=== PATIENT | male | born 1965 | race Caucasian/White ===

== ENCOUNTER 2025-02-10 12:59 | Inpatient (IN) | payer OTHER ==
[~2025-02-10] VITALS: Ht 185.4 cm; Wt 103.8 kg
[2025-02-10 13:50] LABS: PLATELET COUNT (AUTO) 145 K/uL (150-450); RED BLOOD CELL COUNT(AUTO) 4.43 MIL/uL (4.50-5.90); RED CELL DISTRIBUTION WIDTH 13.4 % (11.5-14.5); WHITE BLOOD COUNT (AUTO) 6.8 K/uL (4.5-11.0)
[2025-02-10 13:59] LABS: CALCIUM, TOTAL 8.4 mg/dL (8.8-10.5); CREATININE 1.20 mg/dL (0.60-1.30); GLOMERULAR FILTR. RATE CALC > 60 mL/min (>60); GLUCOSE,RANDOM 99 mg/dL (70-110); SODIUM SERUM 142 mmol/L (136-145); UREA NITROGEN, BLOOD 17 mg/dL (7-18)
[2025-02-10 14:09] LABS: TROPONIN I-HIGH SENSITIVITY 70 ng/L (<76)
[2025-02-10 15:21] LABS: APPEARANCE,URINE CLEAR (CLEAR); GLUCOSE, URINE (UA) NEGATIVE (NEGATIVE); LEUKOCYTE ESTERASE ,URINE NEGATIVE (NEGATIVE); NITRATE,URINE NEGATIVE (NEGATIVE); OCCULT BLOOD,URINE NEGATIVE (NEGATIVE); PH,URINE DRUG SCREEN 6.5 (5.0-8.0); SPECIFIC GRAVITIY, URINE 1.012 (1.003-1.030)
[2025-02-10 15:28] LABS: ALCOHOL, URINE DRUG SCREEN NEGATIVE (NEGATIVE); AMPHET/METH SCREEN,URINE NEGATIVE (NEGATIVE); BARBITURATE SCREEN, URINE NEGATIVE (NEGATIVE); CANNABINOID SCREEN,URINE NEGATIVE (NEGATIVE); COCAINE SCREEN,URINE NEGATIVE (NEGATIVE); METHADONE SCREEN, URINE NEGATIVE (NEGATIVE)
[2025-02-10 15:36] LABS: SQUAMOUS EPITHELIAL CELL,UR Rare /LPF (None Seen)
[2025-02-10] MEDS ORDERED: DIVA-153 PO (15:40)
[2025-02-10] MEDS ORDERED: HYDR50CA7 PO (15:40)
[2025-02-10] MEDS ORDERED: HALO5TAB23 PO (15:40)
[2025-02-10] MEDS ORDERED: OLAN10TA26 PO (15:40)
[2025-02-10] MEDS ORDERED: BENZ-247 PO (15:40)
[2025-02-10] MEDS ORDERED: PALI234D IM (15:40)
[2025-02-10] MEDS ORDERED: METO-325 PO (15:40)
[2025-02-10] MEDS ORDERED: ONDANSETRON HCL 4 MG/2 ML VIAL IVP PRN (17:15)
[2025-02-10] MEDS ORDERED: IPRATROPIUM BROMIDE 0.5 MG/2.5 ML NEB SOLUTION NEB PRN (17:15)
[2025-02-10] MEDS ORDERED: ALBUTEROL SULFATE 2.5 MG/0.5 ML NEB SOLUTION NEB PRN (17:15)
[2025-02-10] MEDS ORDERED: BISACODYL 10 MG RECTAL RECTAL SUPPOSITORY PR PRN (17:15)
[2025-02-10] MEDS ORDERED: ACETAMINOPHEN 325 MG TABLET PO PRN (17:15)
[2025-02-10] MEDS ORDERED: BENZTROPINE MESYLATE 1 MG TABLET PO PRN (17:15)
[2025-02-10] MEDS ORDERED: MAGNESIUM HYDROXIDE SUSPENSION 30 ML UDCUP PO PRN (17:15)
[2025-02-10] MEDS: SODIUM CHLORIDE 0.9% 1,000 ML IV ONE (20:00)
[2025-02-10 21:06] VITALS: BP 96/73; PULSE 64; RESP 18; TEMP 97.5; O2SAT 97
[2025-02-10] MEDS: OLANZapine 10 MG RAPDIS TABLET PO SCH (22:31)
[2025-02-10 23:58] VITALS: BP 112/78; PULSE 62; RESP 18; TEMP 97.3; O2SAT 99
[2025-02-11] MEDS: HEPARIN SODIUM,PORCINE 5,000 UNITS/ML VIAL SQ SCH (00:43)
[2025-02-11 04:24] VITALS: BP 97/68; PULSE 65; RESP 19; TEMP 97.7; O2SAT 98
[2025-02-11] MEDS: PANTOPRAZOLE SODIUM 40 MG DR TABLET PO SCH (08:02)
[2025-02-11 08:18] VITALS: BP 97/66; PULSE 69; RESP 16; TEMP 97.7
[2025-02-11 12:08] VITALS: BP 92/70; PULSE 76; RESP 18; TEMP 98; O2SAT 97
[2025-02-11 15:52] VITALS: BP 90/54; PULSE 87; RESP 17; TEMP 98.3; O2SAT 98
[2025-02-11 19:01] LABS: PLATELET COUNT (AUTO) 166 K/uL (150-450); RED BLOOD CELL COUNT(AUTO) 4.15 MIL/uL (4.50-5.90); RED CELL DISTRIBUTION WIDTH 13.4 % (11.5-14.5); WHITE BLOOD COUNT (AUTO) 6.6 K/uL (4.5-11.0)
[2025-02-11 19:04] VITALS: BP 98/65; PULSE 94; RESP 18; TEMP 98.5; O2SAT 96
[2025-02-11 19:10] LABS: CALCIUM, TOTAL 8.6 mg/dL (8.8-10.5); CREATININE 1.26 mg/dL (0.60-1.30); GLOMERULAR FILTR. RATE CALC 59.0 mL/min (>60); GLUCOSE,RANDOM 131.0 mg/dL (70-110); SODIUM SERUM 140.0 mmol/L (136-145); UREA NITROGEN, BLOOD 17.0 mg/dL (7-18)
[2025-02-11 23:40] VITALS: BP 96/67; PULSE 78; RESP 18; TEMP 98.1; O2SAT 96
[2025-02-12] VITALS (8 sets, daily range): BP systolic 93–126; BP diastolic 51–80; PULSE 72–95; RESP 17–18; TEMP 97.3–98.4; O2SAT 93–98
[2025-02-12 12:18] LABS: ASPARTATE AMINOTRANSFERASE 18.0 U/L (15-37); CALCIUM, TOTAL 8.4 mg/dL (8.8-10.5); CREATININE 1.25 mg/dL (0.60-1.30); GLOMERULAR FILTR. RATE CALC 60.0 mL/min (>60); GLUCOSE,RANDOM 124.0 mg/dL (70-110); SODIUM SERUM 142.0 mmol/L (136-145); TOTAL PROTEIN, SERUM 6.1 g/dL (6.4-8.2); UREA NITROGEN, BLOOD 15.0 mg/dL (7-18)
[2025-02-13 03:20] VITALS: BP 106/75; PULSE 93; RESP 18; TEMP 98.4; O2SAT 96
[2025-02-13 08:26] VITALS: BP 110/80; PULSE 65; RESP 18; O2SAT 97
[2025-02-13 11:45] VITALS: BP 123/84; PULSE 100; RESP 17; TEMP 97.5; O2SAT 99
[2025-02-13] MEDS ORDERED: METO25XL PO (12:32)
[2025-02-13] MEDS: ALBUMIN HUMAN 25%-25GM/100ML 100 ML IV SCH (15:52)
[2025-02-13 15:59] VITALS: BP 101/78; PULSE 104; RESP 17; TEMP 98; O2SAT 96
[2025-02-13 19:16] VITALS: BP 95/83; PULSE 101; RESP 18; TEMP 97.7; O2SAT 95
[2025-02-13] MEDS: DIVALPROEX SODIUM 500 MG ER TABLET PO SCH (20:53)
[2025-02-13 23:21] VITALS: BP 103/79; PULSE 86; RESP 18; TEMP 98.1; O2SAT 95
[2025-02-14 03:51] VITALS: BP 102/73; PULSE 79; RESP 19; TEMP 97.9; O2SAT 95
[2025-02-14] MEDS ORDERED: SODIUM CHLORIDE 0.9% 250 ML IV ONE (04:00)
[2025-02-14 07:52] VITALS: BP 100/74; PULSE 82; RESP 17; TEMP 98; O2SAT 96
[2025-02-14 11:26] VITALS: BP 105/75; PULSE 80; RESP 18; TEMP 98.1; O2SAT 96
[2025-02-14 16:00] VITALS: BP 101/73; PULSE 80; RESP 18; TEMP 97.9; O2SAT 96
[2025-02-14 20:45] VITALS: BP 99/72; PULSE 80; RESP 18; TEMP 97.8; O2SAT 95
[2025-02-15] VITALS (8 sets, daily range): BP systolic 92–118; BP diastolic 70–81; PULSE 70–96; RESP 18–20; TEMP 97.6–98.6; O2SAT 95–98
[2025-02-15 06:40] LABS: PLATELET COUNT (AUTO) 188 K/uL (150-450); RED BLOOD CELL COUNT(AUTO) 3.79 MIL/uL (4.50-5.90); RED CELL DISTRIBUTION WIDTH 14.1 % (11.5-14.5); WHITE BLOOD COUNT (AUTO) 8.6 K/uL (4.5-11.0)
[2025-02-15 06:53] LABS: CALCIUM, TOTAL 9.2 mg/dL (8.8-10.5); CREATININE 1.07 mg/dL (0.60-1.30); GLOMERULAR FILTR. RATE CALC > 60 mL/min (>60); GLUCOSE,RANDOM 89 mg/dL (70-110); SODIUM SERUM 141 mmol/L (136-145); UREA NITROGEN, BLOOD 16 mg/dL (7-18)
[2025-02-15] MEDS ORDERED: SODIUM CHLORIDE 0.9% 500 ML IV ONE (16:24)
[2025-02-15] MEDS: ZOLPIDEM TARTRATE 5 MG TABLET PO PRN (20:44)
[2025-02-16 00:25] VITALS: BP 105/77; PULSE 81; RESP 18; TEMP 98.3; O2SAT 95
[2025-02-16 04:12] VITALS: BP 105/79; PULSE 79; RESP 18; TEMP 98.4; O2SAT 96
[2025-02-16 08:38] VITALS: BP 115/85; PULSE 75; RESP 18; TEMP 98.5; O2SAT 98
[2025-02-16 12:24] VITALS: BP 113/68; PULSE 100; RESP 18; TEMP 97.5; O2SAT 96
[2025-02-16] MEDS ORDERED: SODIUM CHLORIDE 0.9% 500 ML IV ONE (15:34)
[2025-02-16 20:42] VITALS: BP 116/73; PULSE 100; RESP 19; TEMP 99.5; O2SAT 94
[2025-02-17 04:08] VITALS: BP 106/75; PULSE 103; RESP 18; TEMP 99.5; O2SAT 95
[2025-02-17 08:04] VITALS: BP 102/70; PULSE 91; RESP 20; TEMP 98.4; O2SAT 90
[2025-02-17 20:45] VITALS: BP 99/67; PULSE 96; RESP 20; TEMP 98.1; O2SAT 93
[2025-02-18 04:29] VITALS: BP 96/67; PULSE 84; RESP 20; TEMP 98.4; O2SAT 92
[2025-02-18 08:43] VITALS: BP 90/63; PULSE 83; RESP 18; TEMP 98.2; O2SAT 96
[2025-02-18 20:27] VITALS: BP 107/72; PULSE 93; RESP 19; TEMP 97.9; O2SAT 95
[2025-02-19 04:18] VITALS: BP 100/70; PULSE 89; RESP 18; TEMP 98.2; O2SAT 95
[2025-02-19 07:58] VITALS: BP 98/76; PULSE 76; RESP 19; TEMP 98; O2SAT 96
[2025-02-19 15:41] VITALS: BP 96/65; PULSE 73; RESP 18; TEMP 97.7; O2SAT 95
[2025-02-19 19:59] VITALS: BP 104/59; PULSE 78; RESP 18; TEMP 98.2; O2SAT 94
[2025-02-20 01:58] VITALS: BP 107/57; PULSE 83; RESP 18; TEMP 98.4; O2SAT 93
[2025-02-20 08:42] VITALS: BP 102/69; PULSE 90; RESP 20; TEMP 98.8; O2SAT 93
[2025-02-20 17:56] LABS: PLATELET COUNT (AUTO) 195 K/uL (150-450); RED BLOOD CELL COUNT(AUTO) 3.72 MIL/uL (4.50-5.90); RED CELL DISTRIBUTION WIDTH 14.3 % (11.5-14.5); WHITE BLOOD COUNT (AUTO) 5.9 K/uL (4.5-11.0)
[2025-02-20 18:04] LABS: CALCIUM, TOTAL 8.8 mg/dL (8.8-10.5); CREATININE 1.05 mg/dL (0.60-1.30); GLOMERULAR FILTR. RATE CALC > 60 mL/min (>60); GLUCOSE,RANDOM 112 mg/dL (70-110); SODIUM SERUM 138 mmol/L (136-145); UREA NITROGEN, BLOOD 24 mg/dL (7-18)
[2025-02-20 18:11] LABS: ASPARTATE AMINOTRANSFERASE 9 U/L (15-37); TOTAL PROTEIN, SERUM 6.8 g/dL (6.4-8.2)
[2025-02-20 19:50] VITALS: BP 118/89; PULSE 94; RESP 18; TEMP 97.9; O2SAT 96
[2025-02-21 05:00] VITALS: BP 107/78; PULSE 89; RESP 18; TEMP 98.4; O2SAT 95
== END 2025-02-21 06:28 | DRG 73 ==
LOC: EMS 13:07 → EDH 17:20 → 5N 21:03 → 6S 02-16 11:55
PROVIDERS: ADMIT Hospitalist; ATTEND Hospitalist
DX: G90.89 Other disorders of autonomic nervous system (principal); E43 Unspecified severe protein-calorie malnutrition; S06.0XAA Concussion with loss of consciousness status unknown, initial encounter; G93.40 Encephalopathy, unspecified; G40.909 Epilepsy, unspecified, not intractable, without status epilepticus; I95.9 Hypotension, unspecified; F20.9 Schizophrenia, unspecified; N18.30 Chronic kidney disease, stage 3 unspecified; M54.9 Dorsalgia, unspecified; B19.20 Unspecified viral hepatitis C without hepatic coma; E78.5 Hyperlipidemia, unspecified; E88.09 Other disorders of plasma-protein metabolism, not elsewhere classified; T42.6X5A Adverse effect of other antiepileptic and sedative-hypnotic drugs, initial encounter; G24.01 Drug induced subacute dyskinesia; D64.9 Anemia, unspecified; W22.09XA Striking against other stationary object, initial encounter; Z91.81 History of falling; Z68.30 Body mass index [BMI] 30.0-30.9, adult; Y93.89 Activity, other specified; Y92.89 Other specified places as the place of occurrence of the external cause; Y99.8 Other external cause status; Z88.2 Allergy status to sulfonamides
CPT/HCPCS: 70450; 80048; 80053; 80164; 80307; 81001; 84484; 85025; 93005; 93306; 93880; 96360; 97110; 97116; 97162; 97167; 97530; 97535; 99285; J1644; J7040; J7050; P9046; 36415-L1; 36415-TC